=== PATIENT | female | born 2000 | race Caucasian/White ===

== ENCOUNTER 2021-06-12 08:39 | Inpatient (IN) | payer MEDICAID, OTHER ==
[2021-06-12 09:30] LABS: Amphetamine Screen,Urine Not Detected (NotDetected); Barbiturate Screen,Urine Not Detected (NotDetected); Benzodiazepines Screen,Urine Not Detected (NotDetected); Cocaine Screen,Urine Not Detected (NotDetected); Methadone Screen, Urine Not Detected (NotDetected); Opiate Screen,Urine Not Detected (NotDetected); Oxycodone Screen, Urine Not Detected (NotDetected); Phencyclidine Screen,Urine Not Detected (NotDetected); Tricyclic Antidepressant,Urine Not Detected (NotDetected); Urn Cannabinoid Scrn Not Detected (NotDetected)
--- NOTE | 2021-06-12 10:30 | ED ---
Psych HPI - General Chief Complaint: Psychiatric Symptoms Stated Complaint: mental health Time Seen by Provider: 06/12/21 08:49 Source: patient, RN notes reviewed Mode of arrival: ambulatory - History of Present Illness Initial Comments: Patient is a 21-year-old female that presents to emergency department complaining of suicidal ideations with a plan to either overdose or cut her wrist. She notes that lites structure such as relationships family work and school are all piling up causing an increase in her depression. She notes that she has had a previous attempt several years ago. She notes that she came in to get help to prevent any self-harm. She denied any chest pain shortness of breath headache nausea vomiting diarrhea constipation fever fatigue chills. - Related Data Home Medications Medication Instructions Recorded Confirmed fluvoxaMINE MALEATE 100 mg PO QAM 06/12/21 06/12/21 Allergies Allergy/AdvReac Type Severity Reaction Status Date / Time aspirin AdvReac family Verified 06/12/21 09:14 history (mom & dad) Penicillins AdvReac Abdominal Verified 06/12/21 09:14 Pain Review of Systems ROS Statement: Those systems with pertinent positive or pertinent negative responses have been documented in the HPI. ROS Other: All systems not noted in ROS Statement are negative. Past Medical History Past Medical History: No Reported History History of Any Multi-Drug Resistant Organisms: None Reported Past Surgical History: Tonsillectomy Past Psychological History: ADD/ADHD, Depression, Panic Disorder, PTSD Smoking Status: Vaper Past Alcohol Use History: Heavy Past Drug Use History: Marijuana General Exam Limitations: no limitations General appearance: alert, in no apparent distress, obese Head exam: Present: atraumatic, normocephalic, normal inspection Eye exam: Present: normal appearance, PERRL, EOMI. Absent: scleral icterus, conjunctival injection, periorbital swelling Neck exam: Present: normal inspection Respiratory exam: Present: normal lung sounds bilaterally. Absent: respiratory distress, wheezes, rales, rhonchi, stridor Cardiovascular Exam: Present: regular rate, normal rhythm, normal heart sounds. Absent: systolic murmur, diastolic murmur, rubs, gallop, clicks GI/Abdominal exam: Present: soft, normal bowel sounds. Absent: distended, tenderness, guarding, rebound, rigid Extremities exam: Present: normal inspection, full ROM, normal capillary refill. Absent: tenderness, pedal edema, joint swelling, calf tenderness Neurological exam: Present: alert, oriented X3 Psychiatric exam: Present: normal affect, suicidal ideation. Absent: homicidal ideation Skin exam: Present: warm, dry, intact, normal color. Absent: rash Course Vital Signs 06/12/21 08:41 Temperature 97.7 F Pulse Rate 115 H Respiratory 16 Rate Blood Pressure 132/86 O2 Sat by Pulse 98 Oximetry Medical Decision Making - Medical Decision Making 21-year-old female complaining of suicidal ideations with a plan to either overdose or cut her wrist. Drug screen, alcohol breath test ordered. Alcohol breath test 0.04. EPS be contacted to evaluate patient. Case discussed with Dr. Schreiber. Patient will be admitted inpatient for EPS. - Lab Data Lab Results 06/12/21 06/12/21 Range/Units 09:08 09:08 Urine HCG, Qual Not Detected (Not Detectd) Urine Opiates Screen Not Detected (NotDetected) Ur Oxycodone Screen Not Detected (NotDetected) Urine Methadone Screen Not Detected (NotDetected) Ur Propoxyphene Screen Not Detected (NotDetected) Ur Barbiturates Screen Not Detected (NotDetected) U Tricyclic Antidepress Not Detected (NotDetected) Ur Phencyclidine Scrn Not Detected (NotDetected) Ur Amphetamines Screen Not Detected (NotDetected) U Methamphetamines Scrn Not Detected (NotDetected) U Benzodiazepines Scrn Not Detected (NotDetected) Urine Cocaine Screen Not Detected (NotDetected) U Marijuana (THC) Screen Not Detected (NotDetected) Disposition Clinical Impression: Suicidal ideation Disposition: ADMITTED IP TO THIS [facility] Condition: Stable Is patient prescribed a controlled substance at d/c from ED?: No Referrals: None,Stated [Primary Care Provider] - 1-2 days Time of Disposition: 12:25
[2021-06-12] MEDS ORDERED: ONDANSETRON ODT 4 MG TAB PO STA (11:57)
[2021-06-12] MEDS ORDERED: IBUPROFEN 800 MG TAB PO STA (11:59)
[2021-06-12] MEDS ORDERED: ACETAMINOPHEN TAB 325 MG TAB PO PRN (13:35)
[2021-06-12] MEDS ORDERED: MAG HYDROX/AL HYDROX/SIMETH 30 ML CUP PO PRN (13:35)
[2021-06-12] MEDS ORDERED: MAGNESIUM HYDROXIDE 2,400 MG/10 ML CUP PO PRN (13:35)
[2021-06-12] MEDS ORDERED: LORazepam 1 MG TAB PO PRN (13:35)
[2021-06-12] MEDS ORDERED: LORazepam 2 MG/ML INJ IM PRN (13:39)
[2021-06-12] MEDS ORDERED: HALOPERIDOL LACTATE 5 MG/ML 1 ML VIAL IM PRN (13:41)
--- NOTE | 2021-06-13 00:32 | P.MDCNMH ---
History of Present Illness H&P Date: 06/12/21 Chief Complaint: medical eval and management 21 year old female with PTSD, depression and anxiety patient comes in due to uncontrolled depression due to life stressors, she wanted to seek help due to suicidal ideation. she otherwise denies any medical concerns at this time. she denies any fever, chills, respiratory symptoms, chest pain or trouble breathing, denies any abd pain nausea , vomiting, or changes in her bowel or urinary habits. she denies any bleeding, leg swelling, or skin rashes Review of Systems Pertinent positives as noted in HPI. All other systems were reviewed and are negative Past Medical History Past Medical History: No Reported History History of Any Multi-Drug Resistant Organisms: None Reported Past Surgical History: Tonsillectomy Past Psychological History: ADD/ADHD, Depression, Panic Disorder, PTSD Smoking Status: Vaper Past Alcohol Use History: Heavy Past Drug Use History: Marijuana - Past Family History family Family Medical History: No Reported History Medications and Allergies Home Medications Medication Instructions Recorded Confirmed Type fluvoxaMINE MALEATE 100 mg PO QAM 06/12/21 06/12/21 History Allergies Allergy/AdvReac Type Severity Reaction Status Date / Time aspirin AdvReac family Verified 06/12/21 09:14 history (mom & dad) Penicillins AdvReac Abdominal Verified 06/12/21 09:14 Pain Physical Exam Vitals: Vital Signs Temp Pulse Pulse Resp BP BP Pulse Ox 06/12/21 15:10 119 H 156/83 06/12/21 13:50 98.5 F 84 16 135/84 98 06/12/21 12:21 97.9 F 88 16 112/79 97 06/12/21 08:41 97.7 F 115 H 16 132/86 98 Intake and Output 06/12/21 06/12/21 06/13/21 14:59 22:59 06:59 Other: Weight 227.8 kg Constitutional: No acute distress, conversant, pleasant Eyes: Anicteric sclerae, moist conjunctiva, Pupils equal round reactive to light ENMT: NC/AT Oropharynx clear, no erythema, or exudates Neck: Supple, FROM, no masses, or JVD No carotid bruits No thyromegaly Lungs: Clear to auscultation Clear to percussion Normal respiratory effort, no accessory muscle use Cardiovascular: Heart regular in rate and rhythm, No murmurs, gallops, or rubs No peripheral edema Abdominal: Soft Nontender, no guarding, rebound or rigidity Abdomen moving with respiration Normoactive bowel sounds No hepatomegaly, No splenomegaly No palpable mass No abdominal wall hernia noted Skin: Normal temperature, tone, texture, turgor No induration No subcutaneous nodules No rash, lesions No ulcers Extremities: No digital cyanosis No clubbing Pedal pulses intact and symmetrical Radial pulses intact and symmetrical No calf tenderness Psychiatric: Alert and oriented to person, place and time Flat affect fair judgement Neuro Muscles Strength 5/5 in all 4 extremities Sensation to light touch grossly present throughout Cranial nerves II-XII grossly intact No focal sensory deficits Lymphatics: no palpable cervical or supraclavicular , or inguinal lymph nodes Cranial Nerve Examination - Cranial Nerves Cranial Nerve II- Optic: Intact Cranial Nerve III- Oculomotor: Intact Cranial Nerve IV- Trochlear: Intact Cranial Nerve V- Trigeminal: Intact Cranial Nerve - Abducens: Intact Cranial Nerve VII- Facial: Intact Cranial Nerve VIII- Auditory: Intact Cranial Nerve IX- Glossopharyngeal: Intact Cranial Nerve X- Vagus: Intact Cranial Nerve XI- Accessory: Intact Cranial Nerve XII- Hypoglossal: Intact Assessment and Plan Assessment: Depression and suicidal ideation Management per psych Suicidal precautions Patient taping nicotine Nicotine replacement therapy offered Follow-up labs Thank you for allowing us to participate in the care of this patient. We will follow peripherally. Do not hesitate to contact us with questions. Someone can be reached from the [facility] hospitalist group at all hours of the day at [phone].
[2021-06-13] MEDS: NICOTINE 14MG/24HR PATCH TRANSDERM SCH ×2 (07:52→08:45)
[2021-06-13 12:35] LABS: Basophils % (A) 0 %; Eosinophils # (A) 0.4 k/uL (0-0.7); Eosinophils % (A) 4 %; HCT 40.6 % (34.0-46.0); HGB 13.2 gm/dL (11.4-16.0); Lymphocytes # (A) 2.6 k/uL (1.0-4.8); Lymphocytes % (A) 29 %; MCH 28.3 pg (25.0-35.0); MCHC 32.6 g/dL (31.0-37.0); MCV 86.9 fL (80.0-100.0); Monocytes # (A) 0.8 k/uL (0-1.0); Monocytes % (A) 8 %; Neutrophils # (A) 5.1 k/uL (1.3-7.7); Neutrophils % (A) 57 %; Platelet Count 445 k/uL (150-450); RBC 4.67 m/uL (3.80-5.40); RDW 13.4 % (11.5-15.5); WBC 9.1 k/uL (3.8-10.6)
[2021-06-13 12:47] LABS: ALT 35 U/L (4-34); AST 28 U/L (14-36); African American GFR (CKD) >90 (>60 ml/min/1.73 sqM); Albumin 4.6 g/dL (3.5-5.0); Alkaline Phosphatase 74 U/L (38-126); Anion Gap 11 mmol/L; Blood Urea Nitrogen 13 mg/dL (7-17); Calcium 9.9 mg/dL (8.4-10.2); Carbon Dioxide 25 mmol/L (22-30); Chloride 101 mmol/L (98-107); Glucose 92 mg/dL (74-99); Non-African American GFR(CKD) >90 (>60 ml/min/1.73 sqM); Potassium 4.7 mmol/L (3.5-5.1); Sodium 137 mmol/L (137-145); Total Bilirubin 0.4 mg/dL (0.2-1.3); Total Protein 7.7 g/dL (6.3-8.2)
[2021-06-13] MEDS: ARIPiprazole 5 MG TAB PO SCH (15:36)
[2021-06-13 17:59] LABS: Chol/HDL Ratio 2.98; Cholesterol 137 mg/dL (0-200); LDL Cholesterol,Calculated 58.4 mg/dL (0.0-131.0)
[2021-06-13 20:33] LABS: Hemoglobin A1C 5.3 % (4.0-6.0)
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
[2021-06-14] MEDS: NICOTINE 14MG/24HR PATCH TRANSDERM SCH (07:46)
[2021-06-14] MEDS: ARIPiprazole 5 MG TAB PO SCH (07:46)
[2021-06-14] MEDS: NICOTINE POLACRILEX 2 MG GUM BUCCAL PRN (17:44)
--- NOTE | 2021-06-14 23:38 | P.PN ---
Progress Note - Text Progress Note Date: 06/14/21 Subjective: Patient was seen today as a cross coverage for Dr. Chopra. The patient was evaluated, chart reviewed, case discussed with the treatment team. Patient reports better sleep last night, and appetite was reported as " fair". Patient has been going to groups and other unit activities. The patient is compliant with her medications and denies any adverse reactions. Patient reports feeling much better today and he greatly minimizes her depression. She denies feeling hopeless or suicidal. She denies any mood swings, irritability, or anxiety symptoms. She reports feeling homesick and requested discharge. She denies any manic or psychotic symptoms. Patient was educated to discuss discharge plan with the primary psychiatric team. Objective: Vitals has been reviewed. Mental status examination; Appearance: Appears stated age, fairly groomed, average body built, and no specific features. Gait/ posture: Steady gait, normal arm swinging, no abnormal movements, with relaxed posture. Attitude and Behavior: engaged, cooperative, related to the interviewer in socially accepted manner, fair eye contact during course of interview. Motor Activity: Normal psychomotor activity. Speech: spontaneous, slow rate, rhythm, and articulation. Soft volume. Not pressured. Language: Articulating, naming objects and repeat phrases. Mood: "Feeling better today" Affect: Restricted. Thought process: Linear, goal directed. Association: intact. Thought content: Denies delusions, denies suicidal thoughts, denies homicidal thoughts, denies any current intentions, and plan to hurt herself. Perception: Denies hallucinations. Alertness: No impairment. Concentration: Intact. Orientation: Person, place, time, and situation Insight regarding psychiatric condition: fair Judgment regarding daily activities and social situation: fair Impulse control: fair Assessment: Bipolar disorder, most recently episode depressive. Borderline personality disorder. An excited disorder unspecified. PTSD. ADHD by history. Rule out cannabis use disorder. Nicotine use disorder. Plan: Continue inpatient level of care due to need for further monitoring and stabilization Precautions: Continue 15 minutes check for safety. Consider medical consultation if any acute medical issues arise. Provide the patient individual, group therapy, substance use disorder counseling to give better insight and learn coping skills. Medications: Abilify 5 milligram daily for mood stabilization period Continue love walks 50 milligrams twice daily for depression and anxiety. Continue Ativan as needed for excited. Pt refused NRT. Continue as needed medications for psychiatric emergencies including psychosis, agitation and anxiety. Continue non-psychiatric medications for medical conditions as recommended by the medical team. Discharge patient to OUTPATIENT services upon a stabilization
[2021-06-15] MEDS: NICOTINE POLACRILEX 2 MG GUM BUCCAL PRN ×3 (02:19→19:27)
[2021-06-15 05:11] VITALS: BP 130/73; PULSE 93; RESP 16; TEMP 97.5
[2021-06-15] MEDS: ARIPiprazole 5 MG TAB PO SCH (08:09)
--- NOTE | 2021-06-15 11:30 | P.PN ---
Progress Note - Text Progress Note Date: 06/15/21 Interval History: Patient was seen [wandering the hallways] and was directable and agreeable to speak with investment underwriter in the office. [patient appears to have a constricted affect today and claims that she was feeling suicidal and depressed for calling the hospital. She states that she feels medications are helping her since her fluvoxamine has been increased. She states that she does like the combination without and Abilify. She states that she has been talking with her boyfriend who is very supportive of her. She states that she has been trying to go to group to work on coping skills. She claims that she has been sleeping approximately 8-9 hours a night. At this time patient denies any suicidal or homical ideations, intent or plan. Patient denies any auditory, visual hallucinations and denies any paranoia or delusions. Patient denies any side effects from the medications and has been compliant with meds. Mental Status Exam: General Appearance: [Patient appears to be overweight, stated age is alert, directable, and cooperative.] Behavior: [Patient is calmly seated without any agitated behavior.] Speech: Patient's speech is fluent and nonpressured. soft tone of voice Mood/Affect: Mood is improving mildly, affect is congruent and constricted. Suicidality/Homicidality: Patient denies having any suicidal or homicidal ideation intent or plan. Perceptions: Patient denies any visual hallucinations [and denies any auditory hallucinations] Though content/process: [There is no evidence of any delusional thought content and thought process is linear and goal-directed.] concrete Memory and concentration: AOX3, grossly intact for the purposes of this session Judgment and insight: Improving mildly Assessment Bipolar disorder, most recently episode depressive. PTSD. ADHD by history. Nicotine use disorder. Plan: -Patient continues to meet criteria for inpatient psychiatric admission for symptom stabilization and safety. Patient has signed [adult voluntary form and] [medication consent] and was placed in patient's chart. -Medications: continue with Abilify 5 mg daily for mood stabilization. continue with fluvoxamine 50 mg twice a day for mood/anxiety. -When necessary Ativan and Haldol for agitation/aggression. -NRT - nicotine gum -SW on board for discharge planning. Encouraged the patient to participate in milieu. liekly discharge tomorrow.
[2021-06-16] MEDS: ARIPiprazole 5 MG TAB PO SCH (07:57)
[2021-06-16] MEDS: NICOTINE POLACRILEX 2 MG GUM BUCCAL PRN (08:43)
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
== END 2021-06-16 12:35 | disposition home or self-care (01) | DRG 885 ==
LOC: EC 08:39 → 3MHU 13:25
PROVIDERS: ADMIT Psychiatry & Neurology Psychiatry; ATTEND Psychiatry & Neurology Psychiatry
DX: F31.30 Bipolar disorder, current episode depressed, mild or moderate severity, unspecified (principal); R45.851 Suicidal ideations; F90.9 Attention-deficit hyperactivity disorder, unspecified type; F41.0 Panic disorder [episodic paroxysmal anxiety]; F43.10 Post-traumatic stress disorder, unspecified; F60.3 Borderline personality disorder; F17.200 Nicotine dependence, unspecified, uncomplicated; Z91.5 Personal history of self-harm; Z79.899 Other long term (current) drug therapy; Z62.810 Personal history of physical and sexual abuse in childhood
CPT/HCPCS: 80053; 80061; 80306; 81025; 82075; 83036; 84443; 85025; 99285

== ENCOUNTER 2021-07-25 01:07 | Emergency (ER) | payer OTHER ==
[2021-07-25 01:17] VITALS: RESP 20; TEMP 98.3
[2021-07-25] MEDS ORDERED: LORazepam 1 MG TAB PO STA ×2 (01:21→02:41)
[2021-07-25] MEDS ORDERED: ONDANSETRON ODT 4 MG TAB PO STA (01:28)
--- NOTE | 2021-07-25 02:59 | ED ---
Anxiety HPI - General Chief Complaint: Anxiety Stated Complaint: Anxiety Time Seen by Provider: 07/25/21 01:12 Source: patient, EMS, RN notes reviewed Mode of arrival: EMS - History of Present Illness Initial Comments: Patient is a 21-year-old female that presents to the emergency department via EMS for an anxiety attack. She notes that she was eating a edible treated earlier which increased her anxiety. She notes that on top of that she is having extra was stressors at home. She notes that she does have a history of anxiety and similar episode. She notes this is the first one in a while. She does not know anything that worse particularly well for her. She did note that she was mildly nauseous. She was otherwise a well-appearing 21-year-old female in no apparent distress or pain. She denied any chest pain shortness of breath headache vomiting diarrhea constipation fever fatigue chills. - Related Data Home Medications: Previous Rx's Medication Instructions Recorded ARIPiprazole [Abilify] 5 mg PO DAILY 30 Days tab 06/16/21 Nicotine Gum (Polacrilex) 2 mg BUCCAL Q2HR PRN 28 Days gum 06/16/21 [Nicorette] fluvoxaMINE [Luvox] 50 mg PO BID 30 Days tab 06/16/21 Allergies/Adverse Reactions: Allergies Allergy/AdvReac Type Severity Reaction Status Date / Time aspirin AdvReac family Verified 06/12/21 09:14 history (mom & dad) Penicillins AdvReac Abdominal Verified 06/12/21 09:14 Pain Review of Systems ROS Statement: Those systems with pertinent positive or pertinent negative responses have been documented in the HPI. ROS Other: All systems not noted in ROS Statement are negative. Past Medical History Past Medical History: No Reported History History of Any Multi-Drug Resistant Organisms: MRSA Date of last positivie culture/infection: 2014 MDRO Source:: face Past Surgical History: Tonsillectomy Past Psychological History: ADD/ADHD, Bipolar, Depression, Panic Disorder, PTSD Smoking Status: Vaper Past Alcohol Use History: Occasional Past Drug Use History: Marijuana - Past Family History family Family Medical History: No Reported History General Exam General appearance: alert, in no apparent distress, obese Head exam: Present: atraumatic, normocephalic, normal inspection Eye exam: Present: normal appearance, PERRL, EOMI. Absent: scleral icterus, conjunctival injection, periorbital swelling Neck exam: Present: normal inspection Respiratory exam: Present: normal lung sounds bilaterally. Absent: respiratory distress, wheezes, rales, rhonchi, stridor Cardiovascular Exam: Present: regular rate, normal rhythm, normal heart sounds. Absent: systolic murmur, diastolic murmur, rubs, gallop, clicks Extremities exam: Present: normal inspection, full ROM, normal capillary refill. Absent: tenderness, pedal edema, joint swelling, calf tenderness Neurological exam: Present: alert, oriented X3 Psychiatric exam: Present: normal affect, anxious Skin exam: Present: warm, dry, intact, normal color. Absent: rash Course Vital Signs 07/25/21 07/25/21 07/25/21 01:09 02:27 02:28 Temperature 98.3 F Pulse Rate 91 85 Respiratory 20 20 20 Rate Blood Pressure 140/96 119/81 O2 Sat by Pulse 97 96 Oximetry Medical Decision Making - Medical Decision Making 21-year-old female complaining of an anxiety attack. 1 mg of Ativan, 4 mg of Zofran ordered. Upon reevaluation patient states that she is feeling better but is still having some symptoms. One more milligram Ativan ordered. Patient is comfortable with discharge home. Case discussed with Dr. Reyes, patient can discharge home. Disposition Clinical Impression: Acute anxiety, Panic attack Disposition: HOME SELF-CARE Condition: Stable Instructions (If sedation given, give patient instructions): Generalized Anxiety Disorder (ED) Additional Instructions: Please return to the Emergency Department if symptoms worsen or any other concerns. Follow-up with primary care 1-2 days. Is patient prescribed a controlled substance at d/c from ED?: No Referrals: None,Stated [Primary Care Provider] - 1-2 days Time of Disposition: 02:59
[2021-07-25 03:22] VITALS: BP 114/74; PULSE 75
== END 2021-07-25 03:21 | disposition home or self-care (01) ==
LOC: EC 01:07
DX: F41.0 Panic disorder [episodic paroxysmal anxiety] (principal); F31.9 Bipolar disorder, unspecified; F17.290 Nicotine dependence, other tobacco product, uncomplicated; F12.90 Cannabis use, unspecified, uncomplicated; E66.9 Obesity, unspecified; Z79.899 Other long term (current) drug therapy; Z88.0 Allergy status to penicillin; Z88.6 Allergy status to analgesic agent; Z68.41 Body mass index [BMI] 40.0-44.9, adult
CPT/HCPCS: 99283